=== PATIENT | female | born 1965 | race African-American/Black ===

== ENCOUNTER 2022-03-04 21:42 | Observation (INO) | payer MEDICARE, MEDICAID, SELFPAY ==
--- NOTE | ~2022-03-04 | XR_ITS ---
XR chest 2V DATE: 03/04/2022 22:20 INDICATION: Chest pain. History of cardiac arrest, 8 stents. TECHNIQUE: PA and lateral views COMPARISON: None FINDINGS: Heart size is within normal range. No hilar spinal mass lesion or adenopathy is evident. No pulmonary infiltrate or consolidation, pleural effusion or pulmonary vascular congestion or pneumoth orax. Osteopenia Status post cholecystectomy. IMPRESSION: No active cardiopulmonary disease Osteopenia Status post cholecystectomy Reviewed, dictated and finalized at location A.
--- NOTE | ~2022-03-04 | CT_ITS ---
EXAMINATION: CT abdomen pelvis wo con DATE: 03/05/2022 10:50 INDICATION: Epigastric abdominal pain. TECHNIQUE: Computed tomography (CT) of the abdomen and pelvis was performed without intravenous contr ast. Automated exposure control and iterative reconstruction technique were employed. The dose-length product was 1463.58 mGy-cm. COMPARISON: None. FINDINGS: The visualized portions of the lung bases demonstrate mild atelectasis. No pleural effusion . There is left atrial enlargement of the heart. No pericardial effusion. The liver demonstrates stea tosis and surface nodularity, consistent with cirrhosis. There are changes of cholecystectomy. The sp brianna, pancreas, adrenal glands, and kidneys are normal. There is no urolithiasis. There are no dilate d loops of bowel. The appendix is normal. There are no pathologically enlarged lymph nodes. There is no free intraperitoneal fluid. There is mild thoracolumbar spondylosis. IMPRESSION: 1. Cirrhosis of the liver. Reviewed, dictated and finalized at location B. IMPRESSION: 1. Cirrhosis of the liver.
--- NOTE | 2022-03-04 21:45 | ECG_ITS ---
Measurements Intervals [place] Rate: 73 P: 62 [place]: 172 QRS: 57 QRSD: 91 T: 65 QT: 357 QTc: 395 Interpretive Statements SINUS RHYTHM WITHIN NORMAL LIMITS NO PREVIOUS ECG AVAILABLE FOR COMPARISON Electronically Signed On 03-05-2022 14:35:49 CDT by Ronald Alvarenga M.D.
[2022-03-04 21:54] VITALS: BP 142/63; PULSE 73; RESP 18; TEMP 36.2; O2SAT 100
[2022-03-04 22:20] LABS: Partial Thromboplastin Time 29.6 SECONDS (22.3-36.8); Prothrombin Time 12.4 Seconds (11.1-14.7)
[2022-03-04 22:21] LABS: Alanine Aminotransferase 18 U/L (6-35); Albumin Level 4.1 g/dL (3.5-5.1); Alkaline Phosphatase 107 U/L (38-126); Anion Gap 6 mmol/L (8-16); Aspartate Amino Transferase 18 U/L (14-36); Bilirubin,Total 0.5 mg/dL (0.2-1.3); Blood Urea Nitrogen 9 mg/dL (7-17); Calcium 8.9 mg/dL (8.4-10.2); Carbon Dioxide 24 mmol/L (22-30); Chloride 110 mmol/L (98-107); Estimated Glomerular Filt Rate > 60; Glucose 125 mg/dL (65-110); Lipase 63 U/L (23-300); Potassium 3.5 mmol/L (3.4-5.0); Sodium 140 mmol/L (137-145)
[2022-03-04 22:33] LABS: Troponin I < 0.012 ng/mL (0.000-0.034)
[2022-03-04 23:15] VITALS: BP 131/70; PULSE 67; RESP 16; O2SAT 98
[2022-03-04 23:31] LABS: Basophils Absolute Auto 0.1 K/mm3 (0.0-0.1); Basophils Percent Auto 0.9 % (0.2-1.2); Eosinophils Absolute Auto 0.3 K/mm3 (0-0.3); Eosinophils Percent Auto 2.3 % (0-4.4); Hematocrit 43.5 % (37.0-47.0); Hemoglobin 13.6 g/dL (12.0-15.0); Immature Granulocyte Absolute 0.07 K/mm3 (0.00-0.031); Immature Granulocyte Percent A 0.6 % (0-0.5); Lymphocytes Absolute Auto 4.09 K/mm3 (0.9-3.2); Lymphocytes Percent Auto 33.1 % (18.3-44.2); Mean Corpuscular HGB Conc 31.3 g/dl (32-36); Mean Corpuscular Volume 92.8 fl (80-100); Mean Platelet Volume 10.1 fl (7.4-10.4); Monocytes Percent Auto 7.8 % (2.6-8.5); Neutrophils Absolute Auto 6.8 K/mm3 (1.3-6.7); Neutrophils Percent Auto 55.3 % (45.5-73.1); Platelet Count Result 298 k/mm3 (150-375); Red Blood Count 4.69 M/mm3 (4.2-5.4); Red Cell Distribution Width 13.9 % (11.5-14.5); White Blood Count 12.4 K/mm3 (4.5-10.0)
--- NOTE | 2022-03-04 23:42 | ED.CHESTPAIN ---
HPI - Chest Pain General Chief Complaint: Chest Pain <Jessica Amezquita PA-C - Last Filed: 03/05/22 13:37> Stated Complaint: chest pain <Jessica Amezquita PA-C - Last Filed: 03/05/22 13:37> Time Seen by Provider: 03/04/22 23:29 <Jessica Amezquita PA-C - Last Filed: 03/05/22 13:37> History of Present Illness HPI narrative: Patient is a 56-year-old female with a history of diabetes, hypertension, AK status post 8 stents, here for evaluation of chest pain for the past 3 days, worse today. Patient describes the pain as a crushing sensation in her sternum. She noted it with exertion over the past 3 days, has been taking nitro with good relief of her pain, but today the pain has been relatively constant and is severe in nature. The pain is unrelieved by nitro and aspirin; pt states she took 20 today. The pain is associated with shortness of breath, nausea, and diaphoresis. Patient tells me that she is new to the state does not have a parts advisor here, but in the past she tells me that her EKGs and troponins have always been negative and they have only found disease when the going for an angiography. Her most recent angiography was in October of last year when she had another stent placed. No swelling, fevers, chills, cough, orthopnea. <Jessica Amezquita PA-C - Last Filed: 03/05/22 13:37> Related Data Home Medications: Home Medications Medication Instructions Recorded Confirmed aspirin 325 mg tablet 325 mg PO DAILY 03/04/22 03/05/22 clopidogrel 75 mg tablet 75 mg PO DAILY 03/04/22 03/05/22 lisinopril 10 mg tablet 10 mg PO DAILY 03/04/22 03/05/22 metformin 500 mg tablet 250 mg PO BIDWM 03/04/22 03/05/22 methotrexate sodium 10 mg tablet 10 mg PO WEEKLY 03/04/22 03/05/22 rosuvastatin 40 mg tablet (Crestor) 40 mg PO DAILY 03/04/22 03/05/22 dapagliflozin 5 mg tablet (Farxiga) 5 mg PO DAILY 03/05/22 03/05/22 folic acid 1 mg tablet 1 mg PO DAILY 03/05/22 03/05/22 lorazepam 1 mg tablet 1 mg PO BID PRN Anxiety 03/05/22 03/05/22 nitroglycerin 0.4 mg sublingual 0.4 mg sublingual Q5M PRN Chest 03/05/22 03/05/22 tablet Pain oxycodone 20 mg tablet 20 mg PO Q6H PRN Pain 03/05/22 03/05/22 <JONATHON Mancia Last Filed: 03/05/22 13:37> Allergies/Adverse Reactions: Allergies Allergy/AdvReac Type Severity Reaction Status Date / Time amoxicillin Allergy Hives Verified 03/04/22 23:07 erythromycin base Allergy Hives Verified 03/04/22 23:07 methylprednisolone Allergy Nausea and Verified 03/04/22 23:07 [From Solu-Medrol] Vomiting morphine Allergy Hives Verified 03/04/22 23:07 Penicillins Allergy Hives Verified 03/04/22 23:07 sulfamethoxazole Allergy Hives Verified 03/04/22 23:07 [From Bactrim] trimethoprim [From Bactrim] Allergy Hives Verified 03/04/22 23:07 <JONATHON Mancia Last Filed: 03/05/22 13:37> Review of Systems Review of Systems: Gen.: Reports diaphoresis. Denies fevers or chills Eyes: Denies eye pain or visual change ENT: Denies congestion Respiratory: Denies shortness of breath or cough CV: Reports chest pain GI: Reports nausea. Denies abdominal pain emesis or diarrhea : denies burning, urgency, frequency or hematuria Musculoskeletal: Denies back pain or muscle pain Neuro: Denies numbness, tingling, weakness or focal weakness Skin: Denies rash Except as documented, all other systems reviewed and negative <JONATHON Mancia Last Filed: 03/05/22 13:37> [facility] Family History Family History: Family History (Updated 03/05/22 @ 05:16 by Carol Pena RN) Other Adopted <JONATHON Macnia Last Filed: 03/05/22 13:37> Social History Social History: Social History Smoking status: Former smoker Alcohol intake: never Substance use: never Spiritual care concerns: No <Jessica Amezquita PA-C - Last Filed: 03/05/22 13:37> Exam Narrative: APPEARANCE: Uncomfortable appearing, clut
[2022-03-05] VITALS (12 sets, daily range): BP systolic 108–169; BP diastolic 42–79; PULSE 57–100; RESP 16–22; TEMP 36.1–36.9; O2SAT 94–100; BMI 37.8; BMI 42.5
[2022-03-05 03:51] LABS: NT Pro B Type Natriuretic Pept 58 pg/mL (5-100); Troponin I < 0.012 ng/mL (0.000-0.034)
--- NOTE | 2022-03-05 05:11 | ADMGEN ---
This patient, Selma Wild, was admitted to IMU Room 203-01 at 0500. Patient/family oriented to hospital policies and general routines including ID bracelet, bed and alarms, visiting hours, pain management, procedures, bathroom and other care routines, personal items, smoking policy, room service/diet, and visiting hours. Information on how to activate the Rapid Response Team has been discussed. Patient/Family are encouraged to report perceived risks to care and to ask questions if they do not understand what they are told or what they should do.
[2022-03-05] MEDS: HYDROmorphone HCL INJ (*CRX) 1 MG/ML SYR IV PUSH ×2 (05:28→06:17)
--- NOTE | 2022-03-05 07:55 | ECHO_ITS ---
Patient Info Name: Selma Wild Age: 56 years : 1965 Gender: Female Ht: 64 in Wt: 248 lbs BSA: 2.31 m2 HR: 74 bpm BP: 129 / 70 mmHg Heart Rhythm: Sinus Rhythm Exam Date: 03/05/2022 10:17 AM Exam Location: [facility] Pulmonary Patient Status: Inpatient Admit Date: 03/05/2022 Staff Ordering Physician: Laurita Magallon APRN Dancing Master: Darshan Morgan RDCS, RT Attending Provider: Fernanda Dial MD Referring Physician: Naun BANERJEE; Exam Type: CA echo doppler color flow Study Info Indications R06.02 - Shortness of breath Complete two-dimensional, color flow and Doppler transthoracic echocardiogram is performed. Strain analysis performed. Summary 1. Complete two-dimensional, color flow and Doppler transthoracic echocardiogram is performed. 2. Left ventricular chamber dimension is normal. 3. Left ventricular systolic function is normal, estimated at 55-60%. 4. No wall motion abnormalities identified. 5. Definity contrast injected to improve visualization. 6. There is trace aortic valve regurgitation. 7. There is mild mitral valve regurgitation. Left Ventricle Left ventricular chamber dimension is normal. Left ventricular systolic function is normal, estimated at 55-60%. The left ventricular diastolic function is normal. No wall motion abnormalities identified. Definity contrast injected to improve visualization. Right Ventricle Right ventricular chamber dimension is normal. Left Atria Left atrial chamber dimension is normal. Right Atria Right atrial chamber dimension is normal. Aortic Valve The aortic valve is trileaflet. There is mild aortic valve sclerosis. There is trace aortic valve regurgitation. Pulmonic Valve The pulmonic valve is not well visualized. Mitral Valve The mitral valve has normal leaflets. There is mild mitral valve regurgitation. Tricuspid Valve The tricuspid valve leaflets are normal. Pericardium/Pleural The pericardium appears normal. Aorta The aortic root size at the sinus of Valsalva is normal. Left Ventricular Outflow Tract Name Value Normal LVOT 2D LVOT Diameter 2.0 cm LVOT Doppler LVOT Peak Gradient 4 mmHg LVOT Mean Gradient 2 mmHg LVOT VTI 21 cm LVOT VTI/AV VTI Ratio 0.5 LVOT Stroke Volume 62 ml LVOT CO 4.4 l/min LVOT CI 1.9 l/min/m2 Mitral Valve Name Value Normal MV Doppler MV Decel [place] 501 cm/s2 MV PHT 63 ms MV Area (PHT) 3.5 cm2 4.0-5.0 MV Regurgitation Doppler MR GERALD (PISA)
[2022-03-05 07:56] LABS: Troponin I < 0.012 ng/mL (0.000-0.034)
--- NOTE | 2022-03-05 07:57 | ECG_ITS ---
Measurements Intervals [place] Rate: 68 P: 56 [place]: 176 QRS: 53 QRSD: 106 T: 48 QT: 360 QTc: 384 Interpretive Statements SINUS RHYTHM WITHIN NORMAL LIMITS COMPARED TO ECG 03/04/2022 21:52:55 NO SIGNIFICANT CHANGES Electronically Signed On 03-05-2022 14:40:09 CDT by Ronald Alvarenga M.D.
--- NOTE | 2022-03-05 08:21 | PM.IMHP ---
[facility] History of Present Illness Date/Time: 03/05/22 08:21 Chief Complaint: Chest Pain Narrative: Patient is a 56-year-old female with past medical history of diabetes mellitus type 2, hypertension, myocardial infarction status post 9 cardiac stents. Stent placement in a.m. to, circumflex, mid LAD and proximal LAD. Pending records from [facility] as well as [facility]. 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 She does not have an active primary care physician that she sees regularly. Patient does report she is compliant with medications and has been taking her aspirin and Plavix without difficulty. Patient presented to [place] with complaints of chest pain that was ongoing for the past week that has progressively gotten worse over the last 3 days and yesterday became a crushing sensation to the sternum unrelieved with 20 nitro glycerin tablets. The pain was associated with shortness of breath, nausea and diaphoresis. Upon evaluation in the emergency department EKG was negative, troponins negative and other labs and imaging were obtained with a WBC of 12.4, hemoglobin 13.6, hematocrit 43.5, platelet 295, sodium 140, potassium 3.5, BUN 9, creatinine 0.8 with normal LFTs. Chest x-ray did not reveal acute cardiopulmonary abnormality. Patient was admitted for observation by the emergency department for further evaluation. Patient was on the floor continued to complain of persistent chest pain, repeat troponins remain negative and repeat a EKG remained negative. Patient has received IV narcotics which subsequently relieves her pain. Patient's blood pressure is WNL. Patient also reported that the pain did not wake her up however she woke up and then the pain began. She was not doing strenuous activity. Patient reports she is able to lie flat without difficulty. I was able to arouse the patient this morning. Patient did not have substernal chest pain initially however during our conversation the patient reported that she has began to have substernal chest pain, vital signs stable. Pending repeat EKG. Dr. Alvarenga with cardiology was consulted for further evaluation given the patient's significant cardiac history. Pending echocardiogram, CT abdomen and pelvis without contrast, and labs. Review of Systems Review of Systems: All systems reviewed & are unremarkable except as noted in HPI and below [facility] Family History Family History (Updated 03/05/22 @ 05:16 by Carol Pena RN) Other Adopted Social History Social History Smoking status: Former smoker Alcohol intake: never Substance use: never Spiritual care concerns: No Meds Home Medications and Allergies Home Medications Medication Instructions Recorded Confirmed Type aspirin 325 mg tablet 325 mg PO DAILY 03/04/22 03/05/22 History clopidogrel 75 mg tablet 75 mg PO DAILY 03/04/22 03/05/22 History dapagliflozin 5 mg tablet 5 mg PO DAILY 03/04/22 03/05/22 History lisinopril 10 mg tablet 10 mg PO DAILY 03/04/22 03/05/22 History metformin 500 mg tablet 250 mg PO BID 03/04/22 03/05/22 History methotrexate sodium 10 mg tablet 10 mg PO WEEKLY 03/04/22 03/05/22 History rosuvastatin 40 mg tablet (Crestor) 60 mg PO DAILY 03/04/22 03/05/22 History Allergies Allergy/AdvReac Type Severity Reaction Status Date / Time amoxicillin Allergy Hives Verified 03/04/22 23:07 erythromycin base Allergy Hives Verified 03/04/22 23:07 methylprednisolone Allergy Nausea and Verified 03/04/22 23:07 [From Solu-Medrol] Vomiting morphine Allergy Hives Verified 03/04/22 23:07 Penicillins Allergy Hives Verified 03/04/22 23:07 sulfamethoxazole Allergy Hives Verified 03/04/22 23:07 [From Bactrim] trimethoprim [From Bactrim] Allergy Hives Verified 03/04/22 23:07 Vital Signs Vital Signs - 24 hr 03/04/22 21:54 03/04/22 23:15 03/05/22 05:11 Temperature 97
[2022-03-05 08:29] LABS: Hemoglobin A1C 6.5 % (<5.7)
[2022-03-05 08:42] LABS: Glucose Point of Care 112 mg/dl (65-105)
[2022-03-05 08:49] LABS: Basophils Absolute Auto 0.1 K/mm3 (0.0-0.1); Basophils Percent Auto 0.8 % (0.2-1.2); Eosinophils Absolute Auto 0.3 K/mm3 (0-0.3); Eosinophils Percent Auto 2.8 % (0-4.4); Hematocrit 44.4 % (37.0-47.0); Hemoglobin 13.8 g/dL (12.0-15.0); Immature Granulocyte Absolute 0.05 K/mm3 (0.00-0.031); Immature Granulocyte Percent A 0.5 % (0-0.5); Lymphocytes Absolute Auto 3.84 K/mm3 (0.9-3.2); Lymphocytes Percent Auto 35.2 % (18.3-44.2); Mean Corpuscular HGB Conc 31.1 g/dl (32-36); Mean Corpuscular Volume 93.3 fl (80-100); Monocytes Absolute Auto 0.8 K/mm3 (0.1-0.6); Neutrophils Absolute Auto 5.9 K/mm3 (1.3-6.7); Neutrophils Percent Auto 53.7 % (45.5-73.1); Platelet Count Result 290 k/mm3 (150-375); Red Blood Count 4.76 M/mm3 (4.2-5.4); Red Cell Distribution Width 13.9 % (11.5-14.5); White Blood Count 10.9 K/mm3 (4.5-10.0)
[2022-03-05 08:55] LABS: Alanine Aminotransferase 19 U/L (6-35); Albumin Level 4.3 g/dL (3.5-5.1); Alkaline Phosphatase 121 U/L (38-126); Anion Gap 5 mmol/L (8-16); Aspartate Amino Transferase 23 U/L (14-36); Bilirubin,Total 0.7 mg/dL (0.2-1.3); Blood Urea Nitrogen 8 mg/dL (7-17); Calcium 8.9 mg/dL (8.4-10.2); Carbon Dioxide 26 mmol/L (22-30); Chloride 109 mmol/L (98-107); Estimated CRCL calculation 95 ml/min; Estimated Glomerular Filt Rate > 60; Glucose 119 mg/dL (65-110); Potassium 3.7 mmol/L (3.4-5.0); Sodium 140 mmol/L (137-145)
[2022-03-05] MEDS: ENOXAPARIN 40 MG/0.4 ML SYRINGE SUB-Q (09:14)
[2022-03-05] MEDS: PANTOPRAZOLE SODIUM IV 40 MG VIAL IV PUSH (09:14)
[2022-03-05 09:32] LABS: Add Urine Microscopic? YES; Appearance Urine Clear (Clear); Bilirubin Urine Negative (Negative); Blood Urine Negative (Negative); Color Urine Yellow (Yellow); Glucose Urine UA 3+ mg/dL (Negative); Ketones Urine Negative (Negative); Leukocyte Esterase Ur Trace LEU/UL (Negative); Nitrate Urine Negative (Negative); Protein Urine Negative (Negative); Urobilinogen Urine 0.2 mg/dL (<2.0); pH Urine 5.5 (5.0-9.0)
[2022-03-05 09:38] LABS: Mucus Urine Rare /lpf; Squamous Epithelial Cell Urine Many /hpf (Few)
--- NOTE | 2022-03-05 09:59 | PM.CNCAR ---
Assessment and Plan Assessment and plan (1) CAD (coronary artery disease): Code(s): I25.10 - Atherosclerotic heart disease of [place] coronary artery without angina pectoris Status: Acute (2) Chest pain: Code(s): R07.9 - Chest pain, unspecified Status: Acute Plan This is a 56-year-old woman apparently with a history of coronary artery disease with multiple previous interventions over the last 10-12 years. Original presentation apparently was a mi/ACS with out of hospital arrest. She enters the hospital now with chest pain that of course will raise concern a however in the face of this she has unremarkable ECGs and normal biomarkers indicating that her current symptoms are probably not caused by myocardial ischemia. She does have a murmur of aortic valve disease on exam which does not sound severe but I suppose given her symptoms would raise some level of concern regarding aortic valve stenosis. I will see that an echocardiogram gets done and then further recommendations will be forthcoming after I have a chance to review that. At this point it is not my intention to bring her to the label cutter today since she does have unremarkable ECGs and biomarkers. Ronald Alvarenga MD [facility] History of Present Illness History of Present Illness Consult date/time: 03/05/22 09:59 Consult reason: chest pain Reason For Visit: chest pain Narrative: This is a 56-year-old woman I am seeing at the request of the hospitalist this morning because of chest pain. She is unknown to me prior to this consultation. Apparently she has a long history of coronary artery disease. She previously lived in this area and for about 6 or 7 years lived up in [place] and recently moved back to this vicinity. She was in her usual state of health when about 5-7 days ago she started to feel unwell with symptoms of some generalized weakness and fatigue. In addition to that she started to have episodes of chest pain which he describes as a squeezing sensation in the center of the chest. She states the symptoms have been coming and going for a few days at least and she was of course concerned about her cardiac status. Yesterday she started to have relatively severe chest pain in the afternoon and eventually in the evening came to the emergency room for evaluation. In the emergency room she is actively having relatively severe pain like this but her electrocardiogram was largely unremarkable. Her troponin levels were negative she was admitted to the IMU for further evaluation and management. Overnight and this morning she continues to have ongoing chest pain at. The patient is extremely emotional and anxious about this and is crying during most of the history and examination. She has completely normal troponin levels and to unremarkable electrocardiograms. According to the patient she has a history of coronary artery disease dating back to about 10-12 years ago. She states she was having episodes of chest pain and had a number of ER evaluations which were negative. Eventually apparently she had a acute myocardial infarction that was complicated by out of hospital cardiac arrest. She says that she was resuscitated and brought to a [facility]. She states that she underwent an emergency intervention with a stent to the LAD. She understands that following the event her LV function recovered and essentially normalized. She was treated by physicians at the [facility] for a number of years and then transferred her care to a physician she thinks in the [facility]. She states that since the original event she has had numerous subsequent interventions almost on an annual basis. Over the course of the subsequent years she has had at least 8 coronary stents placed all of whom in the LAD and/or the circumflex. She moved to the [facility] about 6 or 7 years ago. According to the patient she had a several interventions during the years wh
[2022-03-05] MEDS: PERFLUTREN LIPID MICROSPHERES 1.5 ML VIAL DILUTED TO 10 ML TOTAL VOLUME IV PUSH (10:25)
--- NOTE | 2022-03-05 10:25 | IVDEFINITY ---
Prior to administration of IV Definity the patient was educated on the risks and benefits of the imaging enhancing agent including potential adverse side effects. The patient verbalized understanding. Allergies were verified. No exclusion criteria were identified and at least one of the following inclusion criteria were met: 1) physician request, 2) patient technically difficult to image (per the [place] Society of Echocardiography guidelines of two or more segments not discernable within the apical view), or 3) questionable left ventricular function. ?
[2022-03-05 12:09] LABS: Glucose Point of Care 116 mg/dl (65-105)
[2022-03-05 12:16] LABS: Cholesterol 163 mg/dL (0-200); HDL Direct 64 mg/dL; Triglycerides 70 mg/dL (<150)
[2022-03-05 12:27] LABS: LDL Cholesterol Direct 74 mg/dL
[2022-03-05 12:47] LABS: Hepatitis B Surface Antigen Negative (Negative)
[2022-03-05 12:53] LABS: HAV RESULT Negative (Negative); Hepatitis B Core IgM Result Negative (Negative)
[2022-03-05 13:00] LABS: HIV 1/2 Ab P24 Ag Result Negative (Negative)
[2022-03-05 13:05] LABS: Hepatitis C Virus Antibody Negative (Negative)
[2022-03-05] MEDS: oxyCODONE HCL (*CRX) 5 MG TAB IR 20 MG PO (15:07)
[2022-03-05 16:34] LABS: Glucose Point of Care 126 mg/dl (65-105)
--- NOTE | 2022-03-05 18:03 | PC.NURSE ---
Per communication with Dr. Alvarenga, no further cardiac procedures are planned for this patient. Spoke with PREET Shay to advise, and to communicate that patient would prefer to go home. It was reported today that patient experienced nausea/vomiting, additionally refused medication intended to reduce gi discomfort.Provider indicated she is not comfortable to discharge at this time, but patient has to option to leave AMA. Patient expressed frustration with this information, and indicated that she does not intend to leave AMA, but feels that providers during this hospitalization have not been receptive to input, and are not listening to me. Patient denies nausea at this time, will continue to monitor closely.
--- NOTE | 2022-03-05 20:00 | PC.NURSE ---
1999- Patient assessed by this nurse. Patient very tearful saying she hasn't been given anything to eat or drink since she has been here. Patient admitted with chest pain. Patient was kept NPO until cardiology evaluated patient. Cardiology cleared patient for any further testing. Patient was kept NPO by hospitalist for upset stomach. Patient was very upset saying she drank out of the faucet like a dog. When asked about chest pain and GI issues patient stated I am not going to tell you because it won't make a difference . 2009- Spoke to FRANCK Brennan, ok to start patient on full liquid diet and see how she tolerates it.
[2022-03-05 20:53] LABS: Glucose Point of Care 115 mg/dl (65-105)
[2022-03-05] MEDS: ROSUVASTATIN 10 MG TABLET 40 MG PO (21:41)
[2022-03-05] MEDS: MELATONIN 5 MG TABLET PO (21:41)
[2022-03-06] VITALS (8 sets, daily range): BP systolic 114–142; BP diastolic 52–57; PULSE 63–85; RESP 16–18; TEMP 36.1–36.9; O2SAT 98–100
--- NOTE | 2022-03-06 06:53 | PM.DS ---
DS: Admitting Diagnosis Discharge Date 03/06/2022 Admitting Diagnosis chest pain DS: Discharge Diagnosis Discharge Diagnosis (1) Chest pain: Code(s): R07.9 - Chest pain, unspecified Status: Acute Assessment and Plan: Monitor vital signs, I&Os, chest pain, shortness of breath and patient is a fall risk Monitor PTT, serial troponins, Serum electrolytes, and cbc Keep serum potassium >4 and keep magnesium >2 Cardiology consulted, appreciate assistance and recommendations Monitor for bloody bowel movements,chest pain,SOB or dizziness/lightheadedness Obtain an Echocardiogram Patient is currently prescribed Crestor 60 mg daily, lisinopril 10 mg daily, 75 mg Plavix and 325mg aspirin. Cardiology apparently signed off on 03/05/2022 (2) Diabetes mellitus type 2 in obese: Code(s): E11.69 - Type 2 diabetes mellitus with other specified complication; E66.9 - Obesity, unspecified Status: Acute Assessment and Plan: Insulin Lispro sliding scale, Accu-checks qAc and HS and Hold oral hypoglycemics HgbA1c 6.5 (3) Leukocytosis: Code(s): D72.829 - Elevated white blood cell count, unspecified Status: Acute Assessment and Plan: Possibly reactive leukocytosis, continue to monitor (4) Hypertension: Code(s): I10 - Essential (primary) hypertension Status: Acute Assessment and Plan: Stable, will resume home medications (5) CAD (coronary artery disease): Code(s): I25.10 - Atherosclerotic heart disease of [place] coronary artery without angina pectoris Status: Acute Assessment and Plan: Patient has a history of 9 coronary artery stents. Stent placement mid circ, M2, mid LAD, proximal LAD Obtaining records from [facility] and [facility] Patient reports she recently moved back to the [facility]. 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 Patient was living in [place] before. Reports she is compliant with medications DS: Summary Hospital Course Reason for hospitalization: chest pain Hospital Course: Patient is a 56-year-old female with past medical history of diabetes mellitus type 2, hypertension, myocardial infarction status post 9 cardiac stents.? Stent placement in a.m. to, circumflex, mid LAD and proximal LAD.? Pending records from [facility] as well as [facility].? Patient reports that she recently moved back to this area and does not have an active library services dean to follow.? She does not have an active primary care physician that she sees regularly.? Patient does report she is compliant with medications and has been taking her aspirin and Plavix without difficulty.? Patient presented to [place] [facility] with complaints of chest pain that was ongoing for the past week that has progressively gotten worse over the last 3 days and yesterday became a crushing sensation to the sternum unrelieved with 20 nitro glycerin tablets.? The pain was associated with shortness of breath, nausea and diaphoresis. Upon evaluation in the emergency department EKG was negative, troponins negative and other labs and imaging were obtained with a WBC of 12.4, hemoglobin 13.6, hematocrit 43.5, platelet 295, sodium 140, potassium 3.5, BUN 9, creatinine 0.8 with normal LFTs.? Chest x-ray did not reveal acute cardiopulmonary abnormality.? Patient was admitted for observation by the emergency department for further evaluation.? Patient was on the floor continued to complain of persistent chest pain, repeat troponins remain negative and repeat a EKG remained negative.? Patient has received IV narcotics which subsequently relieves her pain.? Patient's blood pressure is WNL.? Patient also reported that the pain did not wake her up however she woke up and then the pain began.? She was not doing strenuous activity.? Patient reports she is able to lie flat without difficulty.? I was able to arouse the patient this morning.? Patient did not have
[2022-03-06 07:55] LABS: Glucose Point of Care 127 mg/dl (65-105)
[2022-03-06 08:06] LABS: Basophils Absolute Auto 0.1 K/mm3 (0.0-0.1); Basophils Percent Auto 0.7 % (0.2-1.2); Eosinophils Absolute Auto 0.1 K/mm3 (0-0.3); Eosinophils Percent Auto 1.3 % (0-4.4); Hematocrit 41.5 % (37.0-47.0); Hemoglobin 13.2 g/dL (12.0-15.0); Immature Granulocyte Absolute 0.09 K/mm3 (0.00-0.031); Immature Granulocyte Percent A 0.9 % (0-0.5); Lymphocytes Absolute Auto 2.95 K/mm3 (0.9-3.2); Lymphocytes Percent Auto 28.1 % (18.3-44.2); Mean Corpuscular HGB Conc 31.8 g/dl (32-36); Mean Corpuscular Hemoglobin 29.1 pg (26-34); Mean Corpuscular Volume 91.6 fl (80-100); Mean Platelet Volume 9.7 fl (7.4-10.4); Monocytes Absolute Auto 0.7 K/mm3 (0.1-0.6); Monocytes Percent Auto 6.8 % (2.6-8.5); Neutrophils Absolute Auto 6.5 K/mm3 (1.3-6.7); Neutrophils Percent Auto 62.2 % (45.5-73.1); Platelet Count Result 272 k/mm3 (150-375); Red Blood Count 4.53 M/mm3 (4.2-5.4); Red Cell Distribution Width 13.7 % (11.5-14.5); White Blood Count 10.5 K/mm3 (4.5-10.0)
[2022-03-06 08:12] LABS: Alanine Aminotransferase 17 U/L (6-35); Albumin Level 3.7 g/dL (3.5-5.1); Alkaline Phosphatase 112 U/L (38-126); Anion Gap 2 mmol/L (8-16); Aspartate Amino Transferase 18 U/L (14-36); Bilirubin,Total 1.1 mg/dL (0.2-1.3); Blood Urea Nitrogen 9 mg/dL (7-17); Calcium 8.5 mg/dL (8.4-10.2); Carbon Dioxide 26 mmol/L (22-30); Chloride 106 mmol/L (98-107); Estimated CRCL calculation 99 ml/min; Estimated Glomerular Filt Rate > 60; Glucose 115 mg/dL (65-110); Potassium 3.8 mmol/L (3.4-5.0); Sodium 134 mmol/L (137-145)
--- NOTE | 2022-03-06 10:51 | PC.NURSE ---
Spoke with Dr. Mcintyre, he will not be seeing the patient today, as Dr. Alvarenga indicated in his documentation that no further cardiac follow-up is appropriate during this hospitalization. He stated that discharge is appropriate today. Patient is to follow-up with Dr. Alvarenga in 4 weeks. Advised Laurita Magallon NP.
== END 2022-03-06 11:27 | disposition home or self-care (01) ==
LOC: ANHED 03-05 00:09 → ANHIMU 03-05 05:08
PROVIDERS: Internal Medicine; Physician Assistant; Admitting Provider Chiropractor; Emergency Provider Emergency Medicine; Visit Provider Nurse Practitioner Family
DX: R07.9 Chest pain, unspecified (principal); R06.02 Shortness of breath; I25.10 Atherosclerotic heart disease of native coronary artery without angina pectoris; D72.829 Elevated white blood cell count, unspecified; E11.9 Type 2 diabetes mellitus without complications; I10 Essential (primary) hypertension; I25.2 Old myocardial infarction; Z95.5 Presence of coronary angioplasty implant and graft; Z87.891 Personal history of nicotine dependence; Z79.82 Long term (current) use of aspirin; E66.01 Morbid (severe) obesity due to excess calories; Z68.42 Body mass index [BMI] 45.0-49.9, adult
CPT/HCPCS: 36415; 71046; 74176; 80053; 80061; 80074; 81001; 82948; 83036; 83690; 83735; 83880; 84484; 85025; 85610; 85730; 86703; 93005; 96372; 96374; 96375; 96376; 99285; A9270; C8929; C9113; G0378; G0432; J1170; J1650; Q9957

== ENCOUNTER 2023-12-01 15:56 | Outpatient (CLI) | payer OTHER, SELFPAY ==
--- NOTE | ~2023-12-01 | XR_ITS ---
XR sacroiliac joints min 3V 12/01/2023 16:32 Indication: Polyarthralgias Procedure: 3 views of the sacroiliac joints Comparison: No prior studies for comparison. Findings: There is mild bilateral symmetric osteoarthritis of the sacroiliac joints. No evidence for ankylosis or erosive change. No fracture or traumatic malalignment. Mild osteitis pubis. Pelvic rings are intact. 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 Reviewed, dictated and finalized at location A. 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
--- NOTE | ~2023-12-01 | XR_ITS ---
XR hand LT 2V 12/01/2023 16:32 Indication: Left hand pain Procedure: 2 views left hand Comparison: No prior studies for comparison. Findings: No fracture, subluxation or dislocation. No erosive changes. No joint space narrowing. No f ocal soft tissue abnormality. No foreign bodies. Impression: 1: No significant bone or joint abnormality. Reviewed, dictated and finalized at location A. Impression: 1: No significant bone or joint abnormality.
--- NOTE | ~2023-12-01 | XR_ITS ---
XR hand RT 2V 12/01/2023 16:32 Indication: Right hand pain Procedure: 2 views right hand Comparison: No prior studies for comparison. Findings: No acute fracture or traumatic malalignment. No significant joint space narrowing. No erosi ve changes. No foreign bodies. No focal soft tissue abnormality. Impression: 1: No significant bone or joint abnormality. Reviewed, dictated and finalized at location A. Impression: 1: No significant bone or joint abnormality.
--- NOTE | ~2023-12-01 | XR_ITS ---
EXAMINATION: XR knee RT 3V DATE: 12/01/2023 16:32 INDICATION: Polyarthralgia. Chronic right knee pain. TECHNIQUE: 3 views of right knee were obtained. COMPARISON: None. FINDINGS: Bone alignment is normal. No fracture. There is mild tricompartmental osteoarthritis. There is a small knee joint effusion. IMPRESSION: 1. Mild right knee osteoarthritis. 2. Small right knee joint effusion. Reviewed, dictated and finalized at location A.
--- NOTE | ~2023-12-01 | XR_ITS ---
XR foot LT min 3V 12/01/2023 16:32 Indication: Polyarthralgias Procedure: 3 views left foot Comparison: No prior studies for comparison. Findings: Findings: Osteopenia. There is mild polyarticular osteoarthritis. Lisfranc joint intact. No fracture or traumatic malalignment. There is a degenerative calcaneal enthesophyte at the Achilles a ttachment. Impression: 1: Mild polyarticular osteoarthritis. Reviewed, dictated and finalized at location A. Impression: 1: Mild polyarticular osteoarthritis.
--- NOTE | ~2023-12-01 | XR_ITS ---
XR foot RT min 3V 12/01/2023 16:32 Indication: Polyarthralgias Procedure: 3 views right foot Comparison: No prior studies for comparison. Findings: Osteopenia. There is mild polyarticular osteoarthritis. Lisfranc joint intact. No fracture or traumatic malalignment. There is a degenerative calcaneal enthesophyte at the plantar surface. Impression: 1: Mild polyarticular osteoarthritis. Reviewed, dictated and finalized at location A. Impression: 1: Mild polyarticular osteoarthritis.
== END 2023-12-01 15:57 | disposition home or self-care (01) ==
LOC: ANHIMG 16:01
PROVIDERS: Visit Provider Physician Assistant
DX: M19.072 Primary osteoarthritis, left ankle and foot (principal); M19.071 Primary osteoarthritis, right ankle and foot; M53.3 Sacrococcygeal disorders, not elsewhere classified; M17.11 Unilateral primary osteoarthritis, right knee; M25.461 Effusion, right knee
CPT/HCPCS: 72202; 73120; 73562; 73630